=== PATIENT | male | born 1975 | race Two or more races ===

== ENCOUNTER 2023-01-30 14:51 | Emergency (ER) | payer MEDICAID ==
[~2023-01-30] VITALS: Ht 180.3 cm; Wt 100.0 kg
[2023-01-30 14:54] VITALS: TEMP 98.3
[2023-01-30] MEDS ORDERED: MAGN-169 PO (14:56)
[2023-01-30] MEDS ORDERED: SODIUM CHLORIDE 0.9% 1,000 ML IV ONE (17:00)
[2023-01-30] MEDS ORDERED: BARIUM SULFATE 0.1% SUSPENSION 450 ML BOTTLE PO ONE (17:00)
[2023-01-30 17:05] LABS: BASOPHILS % (AUTO) 0.4 % (0.0-2.0); EOSINOPHILS % (AUTO) 0.3 % (1.0-6.0); HEMATOCRIT 47.3 % (41-53); HEMOGLOBIN 15.6 g/dL (13.5-17.5); LYMPHOCYTES # (AUTO) 2.2 K/uL (1.0-4.8); LYMPHOCYTES % (AUTO) 16.4 % (22.0-44.0); MEAN CORPUSCULAR HEMOGLOBIN 28.5 pg (26.0-34.0); MEAN CORPUSCULAR VOLUME 87 fL (80-100); MONOCYTES % (AUTO) 7.5 % (2.0-9.0); NEUTROPHILS # (AUTO) 10.3 K/uL (1.8-7.7); NEUTROPHILS % (AUTO) 75.4 % (40.0-70.0); PLATELET COUNT (AUTO) 217 K/uL (150-450); RED BLOOD CELL COUNT(AUTO) 5.47 MIL/uL (4.50-5.90)
[2023-01-30 17:19] LABS: LACTIC ACID 1.2 mmol/L (0.4-2.0)
[2023-01-30] MEDS ORDERED: SODIUM CHLORIDE 0.9% 100 ML ONE (17:25)
[2023-01-30] MEDS ORDERED: IOHEXOL 350 MG/ML 100 ML VIAL ONE (17:25)
[2023-01-30 17:31] LABS: ANION GAP 11 mmol/L (8-16); CALCIUM, TOTAL 9.3 mg/dL (8.8-10.5); CARBON DIOXIDE 26 mmol/L (22-29); CHLORIDE 99 mmol/L (98-107); CREATININE 0.87 mg/dL (0.60-1.30); GLOMERULAR FILTR. RATE CALC > 60 mL/min (>60); GLUCOSE,RANDOM 92 mg/dL (70-110); POTASSIUM 3.2 mmol/L (3.5-5.1); SODIUM SERUM 136 mmol/L (136-145)
[2023-01-30 17:37] LABS: ACETAMINOPHEN < 2 mcg/mL (10-30); ALANINE AMINOTRANSFERASE 22 U/L (12-78); ALBUMIN 3.9 g/dL (3.4-5.0); ALKALINE PHOSPHATASE 88 U/L (46-116); ASPARTATE AMINOTRANSFERASE 12 U/L (15-37); BILIRUBIN,TOTAL 0.8 mg/dL (0.1-1.0); LIPASE 42 U/L (73-393); TOTAL PROTEIN, SERUM 8.2 g/dL (6.4-8.2)
[2023-01-30] MEDS ORDERED: CefTRIAXone 1 GM/DEXTROSE 50 ML IV ONE (20:30)
[2023-01-30] MEDS ORDERED: LEVOFLOXACIN 250 MG TABLET PO ONE (20:30)
[2023-01-30] MEDS ORDERED: KETOROLAC TROMETHAMINE 30 MG/ML VIAL IVP ONE (20:30)
[2023-01-30] MEDS ORDERED: MetroNIDAZOLE 250 MG TABLET PO ONE (20:30)
[2023-01-30 20:39] VITALS: BP 133/90; PULSE 84; RESP 16
[2023-01-30 20:44] LABS: APPEARANCE,URINE CLEAR (CLEAR); BILIRUBIN,URINE NEGATIVE (NEGATIVE); GLUCOSE, URINE (UA) NEGATIVE (NEGATIVE); LEUKOCYTE ESTERASE ,URINE NEGATIVE (NEGATIVE); NITRATE,URINE NEGATIVE (NEGATIVE); OCCULT BLOOD,URINE SMALL (NEGATIVE); PH,URINE 6.5 (5.0-8.0); PROTEIN,URINE NEGATIVE (NEGATIVE); SPECIFIC GRAVITIY, URINE 1.014 (1.003-1.030); UROBILINOGEN,URINE <=1.0 mg/dL (<=1.0)
[2023-01-30 20:55] LABS: BACTERIA,URINE None Seen /HPF (None Seen); RBC,URINE 0-2 /HPF (0-2); WBC,URINE None Seen /HPF (0-5)
[2023-01-30 20:56] LABS: SQUAMOUS EPITHELIAL CELL,UR None Seen /LPF (None Seen)
[2023-01-30] MEDS ORDERED: CEPH-558 PO (21:06)
[2023-01-30] MEDS ORDERED: HYDR-4072 PO (21:06)
[2023-01-30] MEDS ORDERED: POLY238P PO (21:06)
[2023-01-30] MEDS ORDERED: METR500 PO (21:06)
== END 2023-01-30 21:25 | disposition home or self-care (01) ==
LOC: EMS 14:51
DX: K57.32 Diverticulitis of large intestine without perforation or abscess without bleeding (principal)
CPT/HCPCS: 99285; 74177; 96365; 71045; 96361; 96375; 80053; 83605; 83690; 84484; 85025; 36415; 93005; 81001; G0481; J0696; J1885; Q9967; J7030; J7050; G0480